=== PATIENT | male | born 1960 | race Two or more races ===

== ENCOUNTER 2022-07-21 03:49 | Inpatient (IN) | payer OTHER ==
[~2022-07-21] VITALS: Ht 172.7 cm; Wt 0.1 kg
[2022-07-21] MEDS ORDERED: ASPirin 81 mg TAB PO ONE (04:30)
[2022-07-21 04:34] LABS: Basophils # (auto) 0.1 10 ^3/uL (0-0.2); Eosinophils # (auto) 0.6 10 ^3/uL (0-0.8); Lymphocytes # (auto) 1.2 10 ^3/uL (0.4-5.4); Neutrophils # (auto) 7.4 10 ^3/uL (1.6-8.6); White Blood Cell 9.7 10^3/uL (4.4-10.8)
[2022-07-21 04:36] LABS: Basophils % (auto) 0.6 % (0.0-2.0); Hemoglobin 11.8 g/dL (13.5-17.5); Lymphocytes % (auto) 12.4 % (10.0-50.0); Mean Corpuscular Hemoglobin 33.3 pg (28.0-32.0); Mean Corpuscular Hgb Conc. 35.7 g/dL (32.0-36.0); Mean Corpuscular Volume 93.3 fL (80.0-100.0); Monocytes # (auto) 0.4 10 ^3/uL (0-1.3); Monocytes % (auto) 4.5 % (0.0-12.0); Neutrophils % (auto) 76.5 % (37.0-80.0); Red Blood Cells 3.54 10^6/uL (4.5-5.90); Red Cell Distribution Width 14.6 % (11.8-14.3)
[2022-07-21 04:48] LABS: Albumin 3.6 g/dL (3.4-5.0); BUN/Creatinine Ratio 4.8 (10.0-20.0); Calcium 8.9 mg/dL (8.5-10.1); Magnesium 2.7 mg/dL (1.6-2.6); Potassium 4.1 mmol/L (3.5-5.1)
[2022-07-21 04:51] LABS: Bilirubin, Total 0.6 mg/dL (0.2-1.0); Total Protein 7.2 g/dL (6.4-8.2)
[2022-07-21 04:52] LABS: INR 1.03 (0.9-1.15); Partial Thromboplastin Time 28.5 sec (24.6-33.4)
[2022-07-21] MEDS ORDERED: ONDANSETRON ODT 4 MG TAB PO ONE (05:15)
[2022-07-21] MEDS ORDERED: cloNIDine HCL 0.1 MG TAB PO ONE (06:00)
[2022-07-21] MEDS ORDERED: HEPARIN SODIUM (PORCINE) 5000 UNITS/ML 1ML VIAL IV ONE (08:30)
[2022-07-21] MEDS ORDERED: hydrALAZINE HCL 20 MG/ML VL IV ONE (09:00)
[2022-07-21] MEDS ORDERED: ACETAMINOPHEN 325 MG TAB PO PRN (10:30)
[2022-07-21] MEDS ORDERED: MORPHINE SULFATE INJ 2 MG/ml SYRG IV PRN (10:30)
[2022-07-21] MEDS ORDERED: DOCUSATE SOD 100 MG CAP PO PRN (10:30)
[2022-07-21] MEDS ORDERED: HYDROcodone-ACET 5/325MG TAB PO PRN (10:30)
[2022-07-21] MEDS ORDERED: ONDANSETRON HCL 4 MG/2 ML VIAL IV PRN (10:30)
[2022-07-21] MEDS ORDERED: HYDROmorphone HCL 2 MG/ML VL/or syr IV PRN (10:30)
[2022-07-21] MEDS ORDERED: NITROGLYCERIN 0.4 MG SL TAB SL PRN (10:30)
[2022-07-21] MEDS ORDERED: DEXTROSE (50%) 50ML SYRG IV PRN (10:45)
[2022-07-21] MEDS: ACCU-CHEK COMFORT CURVE STRIP VI SCH ×3 (11:41→22:07)
[2022-07-21] MEDS: amLODIPine BESYLATE 5 MG TAB PO SCH (11:49)
[2022-07-21] MEDS: InsuLIN REG 1unit/0.01ml Soln (100units/ml) SC SCH ×3 (11:53→22:00)
[2022-07-21] MEDS ORDERED: HEPARIN DRIP/D5W 100UNITS/ML 250 ML IV SCH (12:45)
[2022-07-21] MEDS: SODIUM CHLOR 0.9% PF (SALINE LOCK) 10ML VIAL/SYR IV SCH ×2 (14:33→22:07)
[2022-07-21 14:58] LABS: Basophils # (auto) 0.1 10 ^3/uL (0-0.2); Eosinophils # (auto) 0.3 10 ^3/uL (0-0.8); Eosinophils % (auto) 4.5 % (0.0-7.0); Hematocrit 27.4 % (41.0-53.0); Hemoglobin 9.7 g/dL (13.5-17.5); Lymphocytes # (auto) 1.4 10 ^3/uL (0.4-5.4); Lymphocytes % (auto) 21.9 % (10.0-50.0); Mean Corpuscular Hemoglobin 33.2 pg (28.0-32.0); Mean Corpuscular Hgb Conc. 35.2 g/dL (32.0-36.0); Mean Corpuscular Volume 94.3 fL (80.0-100.0); Monocytes # (auto) 0.4 10 ^3/uL (0-1.3); Monocytes % (auto) 7.1 % (0.0-12.0); Neutrophils # (auto) 4.2 10 ^3/uL (1.6-8.6); Neutrophils % (auto) 65.5 % (37.0-80.0); Nucleated Red Blood Cells % 0.1 %; Red Blood Cells 2.91 10^6/uL (4.5-5.90); Red Cell Distribution Width 14.7 % (11.8-14.3); White Blood Cell 6.4 10^3/uL (4.4-10.8)
[2022-07-21 15:23] LABS: INR 1.06 (0.9-1.15); Partial Thromboplastin Time 30.5 sec (24.6-33.4)
[2022-07-21 20:55] LABS: INR 1.03 (0.9-1.15); Partial Thromboplastin Time 48.9 sec (24.6-33.4)
[2022-07-22 03:51] LABS: Basophils # (auto) 0.1 10 ^3/uL (0-0.2); Basophils % (auto) 0.7 % (0.0-2.0); Eosinophils # (auto) 0.4 10 ^3/uL (0-0.8); Eosinophils % (auto) 5.1 % (0.0-7.0); Hematocrit 26.9 % (41.0-53.0); Hemoglobin 9.7 g/dL (13.5-17.5); Lymphocytes # (auto) 1.5 10 ^3/uL (0.4-5.4); Lymphocytes % (auto) 20.3 % (10.0-50.0); Mean Corpuscular Hgb Conc. 36.2 g/dL (32.0-36.0); Monocytes # (auto) 0.5 10 ^3/uL (0-1.3); Monocytes % (auto) 6.4 % (0.0-12.0); Neutrophils % (auto) 67.5 % (37.0-80.0); Nucleated Red Blood Cells % 0.1 %; Red Blood Cells 2.86 10^6/uL (4.5-5.90); White Blood Cell 7.4 10^3/uL (4.4-10.8)
[2022-07-22 04:06] LABS: Albumin 2.9 g/dL (3.4-5.0); Magnesium 2.7 mg/dL (1.6-2.6); Potassium 4.6 mmol/L (3.5-5.1)
[2022-07-22 04:09] LABS: BUN/Creatinine Ratio 5.7 (10.0-20.0); Bilirubin, Total 0.4 mg/dL (0.2-1.0); Phosphorus 6.7 mg/dL (2.5-4.90); Total Protein 5.7 g/dL (6.4-8.2)
[2022-07-22 04:13] LABS: INR 1.05 (0.9-1.15)
[2022-07-22 04:16] LABS: Partial Thromboplastin Time 79.7 sec (24.6-33.4)
[2022-07-22] MEDS: SODIUM CHLOR 0.9% PF (SALINE LOCK) 10ML VIAL/SYR IV SCH ×3 (05:27→22:00)
[2022-07-22] MEDS: InsuLIN REG 1unit/0.01ml Soln (100units/ml) SC SCH ×4 (07:00→21:24)
[2022-07-22] MEDS ORDERED: SODIUM CHL 0.9% 1000 ML BAG XX ONE (07:00)
[2022-07-22] MEDS: ACCU-CHEK COMFORT CURVE STRIP VI SCH ×4 (07:03→22:00)
[2022-07-22 07:13] LABS: Urine Bacteria NONE SEEN /hpf (None Seen); Urine Blood TRACE /uL (Negative); Urine WBC 3 /hpf (0 - 3)
[2022-07-22] MEDS ORDERED: HEPARIN DRIP/D5W 100UNITS/ML 250 ML IV SCH ×2 (08:30→16:45)
[2022-07-22 09:35] LABS: INR 1.05 (0.9-1.15); Partial Thromboplastin Time 50.6 sec (24.6-33.4)
[2022-07-22] MEDS: amLODIPine BESYLATE 5 MG TAB PO SCH (10:21)
[2022-07-22] MEDS: hydrALAZINE HCL 20 MG/ML VL IV PRN ×2 (11:46→16:47)
[2022-07-22] MEDS ORDERED: AZITHROMYCIN 500MG/ 250ML 250 ML IV ONE (12:30)
[2022-07-22] MEDS ORDERED: cefTRIAXone 1GM/50ML D5W 50 ML IV ONE (12:30)
[2022-07-22 12:42] LABS: INR 1.01 (0.9-1.15); Partial Thromboplastin Time 50.8 sec (24.6-33.4)
[2022-07-22] MEDS ORDERED: FURO40TA4 PO (14:26)
[2022-07-22] MEDS ORDERED: SEVE800T8 PO (14:27)
[2022-07-22] MEDS ORDERED: TAMS0.4C36 PO (14:30)
[2022-07-22] MEDS ORDERED: INSLANTI SC (14:30)
[2022-07-22] MEDS ORDERED: AML5T PO (14:30)
[2022-07-22] MEDS ORDERED: CHOLPOW40 XX (14:30)
[2022-07-22] MEDS ORDERED: ATOR40TA52 PO (14:32)
[2022-07-22] MEDS ORDERED: B-COCAP23 PO (14:33)
[2022-07-22] MEDS ORDERED: SILD100T57 PO (14:34)
[2022-07-22] MEDS ORDERED: CHOL100046 PO (14:35)
[2022-07-22 15:02] VITALS: BP 179/61
[2022-07-22] MEDS ORDERED: LOSARTAN POTASSIUM 50 MG TAB PO ONE (15:15)
[2022-07-22 16:34] VITALS: BP 168/76
[2022-07-22 20:00] VITALS: BP 168/76
[2022-07-22 22:00] VITALS: BP 157/70
[2022-07-22] MEDS ORDERED: HEPARIN SODIUM (PORCINE) 5000 UNITS/ML 1ML VIAL IV ONE (23:00)
[2022-07-23 05:00] VITALS: BP 162/60
[2022-07-23] MEDS: ACCU-CHEK COMFORT CURVE STRIP VI SCH ×2 (06:31→11:46)
[2022-07-23] MEDS: InsuLIN REG 1unit/0.01ml Soln (100units/ml) SC SCH ×2 (06:31→12:22)
[2022-07-23] MEDS: SODIUM CHLOR 0.9% PF (SALINE LOCK) 10ML VIAL/SYR IV SCH (06:31)
[2022-07-23 07:05] LABS: INR 1.09 (0.9-1.15)
[2022-07-23 07:16] LABS: Partial Thromboplastin Time 118.5 sec (24.6-33.4)
[2022-07-23 08:05] VITALS: BP 174/63
[2022-07-23 08:24] LABS: Potassium 4.2 mmol/L (3.5-5.1)
[2022-07-23 08:26] LABS: Calcium 7.8 mg/dL (8.5-10.1)
[2022-07-23] MEDS ORDERED: cefTRIAXone 1GM/50ML D5W 50 ML IV SCH (09:00)
[2022-07-23] MEDS: hydrALAZINE HCL 20 MG/ML VL IV PRN (09:52)
[2022-07-23] MEDS ORDERED: AZITHROMYCIN 500MG/ 250ML 250 ML IV SCH (10:00)
[2022-07-23] MEDS ORDERED: amLODIPine BESYLATE 5 MG TAB PO SCH (10:00)
[2022-07-23] MEDS ORDERED: LOSARTAN POTASSIUM 50 MG TAB PO SCH (10:00)
[2022-07-23 10:17] LABS: INR 1.09 (0.9-1.15)
[2022-07-23 10:23] LABS: Partial Thromboplastin Time 116.9 sec (24.6-33.4)
[2022-07-23] MEDS ORDERED: AMLO-496 PO (11:36)
[2022-07-23] MEDS ORDERED: LOSA-39 PO (11:36)
[2022-07-23] MEDS ORDERED: ASPI-325 PO (11:39)
[2022-07-23] MEDS ORDERED: AZITTAB PO (11:42)
[2022-07-23] MEDS ORDERED: HEPARIN DRIP/D5W 100UNITS/ML 250 ML IV SCH (12:00)
[2022-07-23 14:47] VITALS: BP 151/73
== END 2022-07-23 16:19 | disposition home or self-care (01) | DRG 280 ==
LOC: ER 03:49 → TELE 10:26 → TELE-WESTW 07-22 13:23
PROVIDERS: ADMIT Internal Medicine; ATTEND Internal Medicine Geriatric Medicine
PROC: 5A1D70Z Performance of Urinary Filtration, Intermittent, Less than 6 Hours Per Day (ICD-10-PCS; principal; 2022-07-22)
DX: I16.1 Hypertensive emergency (principal); J18.9 Pneumonia, unspecified organism; I21.A1 Myocardial infarction type 2; N18.6 End stage renal disease; R07.89 Other chest pain; I12.0 Hypertensive chronic kidney disease with stage 5 chronic kidney disease or end stage renal disease; Z20.822 Contact with and (suspected) exposure to COVID-19; D63.1 Anemia in chronic kidney disease; E11.22 Type 2 diabetes mellitus with diabetic chronic kidney disease; Z79.899 Other long term (current) drug therapy; Z99.2 Dependence on renal dialysis; Z79.82 Long term (current) use of aspirin
CPT/HCPCS: 36415; 71045; 80048; 80053; 81001; 82962; 83735; 83880; 84100; 84484; 85025; 85379; 85610; 85730; 87081; 87426; 87804; 90935; 93005; 93306; 96374; 96375; G0378; J0696; J1815; Q0162